=== PATIENT | female | born 2000 | race Caucasian/White ===

== ENCOUNTER 2021-09-20 18:01 | Observation (INO) | payer MEDICAID, SELFPAY ==
--- NOTE | ~2021-09-20 | US_ITS ---
EXAMINATION: US OB <=14 wk fetus w TV DATE: 09/20/2021 20:27 INDICATION: Lower abdominal pain and cramping during first trimester TECHNIQUE: Real-time pelvic transabdominal and transvaginal ultrasound was performed. COMPARISON: None. FINDINGS: The uterus measures 8.0 x 3.5 x 4.8 cm no intrauterine gestational sac is seen. There is a nabothian cyst of the cervix. The endometrium is thickened measuring 2.1 cm. There appears to be a d eformed gestational sac with a pole in the right adnexa. The questionable pole measures a pproximately 1 mm. There is no free fluid in the pelvis. The right ovary measures 5.2 x 3.4 x 3.8 cm. The left ovary measures 3.9 x 1.6 x 1.7 cm. There is normal vascular flow in the ovaries. IMPRESSION: 1. Sonographic findings consistent with ectopic of the right adnexa. These findings were di scussed with Dr. Bhavin Cooney DO in the Emergency Department at 2048 hours on 09/20/2021. Reviewed, dictated and finalized at location F. TY TECH IMPRESSION: 1. Sonographic findings consistent with ectopic of the right adnexa. These findings were discussed with Dr. Bhavin Cooney DO in the Emergency D epartment at 2048 hours on 09/20/2021.
[2021-09-20 18:14] VITALS: BP 124/67; PULSE 77; RESP 16; TEMP 36.9; O2SAT 100
--- NOTE | 2021-09-20 19:15 | ED.GENADULT ---
HPI - General Adult General Chief complaint: CELL LEAD Stated complaint: 5weks preg, abd pain Time Seen by Provider: 09/20/21 19:05 Source: RN notes reviewed History of Present Illness HPI narrative: Patient presents emergency department from home for abdominal pain. Patient states for the past 2 days she has been having intermittent abdominal pain described as cramping in the lower abdomen she states that she is approximately 5 weeks she is states she has similar pain approximately week and a half ago had been seen for ED at [place] at that time and had ultrasound which showed showed no IUP and she had received no RhoGAM at that time. Patient states that she has had no fevers or chills no nausea vomiting diarrhea states that she did have some vaginal spotting this morning but has had none this afternoon Related Data Home Medications Medication Instructions Recorded Confirmed No Home Medications 09/20/21 09/20/21 Allergies Allergy/AdvReac Type Severity Reaction Status Date / Time No Known Allergies Allergy Verified 09/20/21 18:18 Review of Systems Review of Systems: Gen.: Denies fevers or chills ENT: Denies congestion Respiratory: Denies shortness of breath or cough CV: Denies chest pain or palpitations GI: Reports lower abdominal pain nausea, emesis or diarrhea reports and vaginal spotting Musculoskeletal: Denies back pain or muscle pain Neuro: Denies numbness, tingling, weakness or focal weakness Skin: Denies rash Except as documented, all other systems reviewed and negative [facility] Past Medical History Medical History History of kidney stones Surgical History Surgical History (Updated 09/03/19 @ 01:48 by Jack Barahona) History of cholecystectomy History of tonsillectomy Social History Social History Smoking status: Never smoker Exam Narrative: APPEARANCE: No acute distress, nontoxic, resting in bed EYES: EOMI HEENT: Normocephalic, atraumatic, OMM RESPIRATORY: No respiratory distress Clear to auscultation bilaterally with no rhonchi wheezing or rales. CARDIOVASCULAR: Regular rate and rhythm without murmurs rubs or gallops. ABDOMINAL: Soft, nontender, nondistended, no rebound or guarding MUSCULOSKELETAl: Moves all extremities. No clubbing, cyanosis or edema. NEURO: Awake and alert. Following commands, speech normal, no focal deficits SKIN:: Warm, dry. No rashes lesions or abrasions PSYCHIATRIC: Normal affect/mood, Course Course Emergency Course: Discussed with Dr. Kirkland presentation work-up discussed ultrasound results. Request patient admitted to his service n.p.o. after midnight Discussed with patient results of work-up discussed ectopic and need for admission all questions answered patient in agreement at this time Vital Signs Vital signs: Vital Signs Temperature 98.4 F 09/20/21 18:14 Pulse Rate 77 09/20/21 18:14 Respiratory Rate 16 09/20/21 18:14 Blood Pressure 124/67 09/20/21 18:14 Pulse Oximetry 100 09/20/21 18:14 Temperature 98.4 F 09/20/21 18:14 Pulse Rate 77 09/20/21 18:14 Respiratory Rate 16 09/20/21 18:14 Blood Pressure 124/67 09/20/21 18:14 Pulse Oximetry 100 09/20/21 18:14 Medical Decision Making Vital Signs Vital Signs: Vital Signs Temperature 98.4 F 09/20/21 18:14 Pulse Rate 77 09/20/21 18:14 Respiratory Rate 16 09/20/21 18:14 Blood Pressure 124/67 09/20/21 18:14 Pulse Oximetry 100 09/20/21 18:14 Temperature 98.4 F 09/20/21 18:14 Pulse Rate 77 09/20/21 18:14 Respiratory Rate 16 09/20/21 18:14 Blood Pressure 124/67 09/20/21 18:14 Pulse Oximetry 100 09/20/21 18:14 Lab Data Result diagrams: 09/20/21 19:24 09/20/21 19:24 Labs: Lab Results 09/20/21 09/20/21 09/20/21 Range/Units 19:23 19:24 19:24 WBC 11.5 H (4.5
[2021-09-20 19:32] LABS: Basophils Percent Auto 0.3 % (0.2-1.2); Eosinophils Absolute Auto 0.1 K/mm3 (0-0.3); Eosinophils Percent Auto 1.1 % (0-4.4); Hemoglobin 13.8 g/dL (12.0-15.0); Immature Granulocyte Absolute 0.06 K/mm3 (0.00-0.031); Immature Granulocyte Percent A 0.5 % (0-0.5); Lymphocytes Absolute Auto 2.69 K/mm3 (0.9-3.2); Lymphocytes Percent Auto 23.3 % (18.3-44.2); Mean Corpuscular HGB Conc 33.7 g/dl (32-36); Mean Corpuscular Hemoglobin 31.5 pg (26-34); Mean Corpuscular Volume 93.6 fl (80-100); Mean Platelet Volume 10.1 fl (7.4-10.4); Monocytes Absolute Auto 0.8 K/mm3 (0.1-0.6); Monocytes Percent Auto 7.3 % (2.6-8.5); Neutrophils Absolute Auto 7.8 K/mm3 (1.3-6.7); Neutrophils Percent Auto 67.5 % (45.5-73.1); Platelet Count Result 199 k/mm3 (150-375); Red Blood Count 4.38 M/mm3 (4.2-5.4); Red Cell Distribution Width 12.7 % (11.5-14.5); White Blood Count 11.5 K/mm3 (4.5-10.0)
[2021-09-20 19:43] LABS: Add Urine Microscopic? YES; Amorphous Sediment Urine Few; Appearance Urine Cloudy (Clear); Bilirubin Urine Negative (Negative); Blood Urine Negative (Negative); Budding Yeast Urine Present /hpf; Color Urine Yellow (Yellow); Glucose Urine UA Negative (Negative); Ketones Urine Negative (Negative); Leukocyte Esterase Ur Negative LEU/UL (Negative); Mucus Urine Rare /lpf; Nitrate Urine Negative (Negative); Protein Urine Negative (Negative); Squamous Epithelial Cell Urine Moderate /hpf (Few); Urobilinogen Urine Negative mg/dL (<2.0); WBC Urine 0-3 /hpf
[2021-09-20 19:48] LABS: Alanine Aminotransferase 11 U/L (4-35); Albumin Level 4.3 g/dL (3.5-5.1); Alkaline Phosphatase 56 U/L (38-126); Anion Gap 10 mmol/L (8-16); Aspartate Amino Transferase 19 U/L (14-36); Bilirubin,Total 0.4 mg/dL (0.2-1.3); Blood Urea Nitrogen 10 mg/dL (7-17); Calcium 9.5 mg/dL (8.4-10.2); Carbon Dioxide 24 mmol/L (22-30); Chloride 104 mmol/L (98-107); Estimated CRCL calculation 116 ml/min; Estimated Glomerular Filt Rate > 60; Glucose 81 mg/dL (65-110); Potassium 4.2 mmol/L (3.4-5.0); Sodium 138 mmol/L (137-145)
--- NOTE | 2021-09-20 19:51 | PC.NURSE ---
Patient taken to ultrasound.
[2021-09-20] MEDS: ACETAMINOPHEN 500 MG TABLET 1000 MG PO (20:46)
[2021-09-20 21:18] VITALS: BP 130/67; PULSE 80; RESP 17; TEMP 36.4; O2SAT 100
[2021-09-20 21:38] LABS: EDCOVIDSCREEN Negative (Negative)
[2021-09-20 22:11] VITALS: BP 112/56; PULSE 71; TEMP 37.6
[2021-09-21] VITALS (64 sets, daily range): BP systolic 85–135; BP diastolic 32–72; PULSE 62–115; RESP 16–20; TEMP 36.9–37.3; O2SAT 96–100; BMI 37.8; BMI 40.1
[2021-09-21] MEDS: MORPHINE SULFATE (*CRX) 2 MG/ML INJ IV PUSH (00:39)
[2021-09-21 02:24] LABS: Lipase 88 U/L (23-300)
[2021-09-21 05:43] LABS: Basophils Percent Auto 0.4 % (0.2-1.2); Eosinophils Absolute Auto 0.1 K/mm3 (0-0.3); Eosinophils Percent Auto 1.3 % (0-4.4); Hematocrit 38.4 % (37.0-47.0); Hemoglobin 13.2 g/dL (12.0-15.0); Immature Granulocyte Absolute 0.06 K/mm3 (0.00-0.031); Immature Granulocyte Percent A 0.6 % (0-0.5); Lymphocytes Absolute Auto 3.02 K/mm3 (0.9-3.2); Lymphocytes Percent Auto 29.9 % (18.3-44.2); Mean Corpuscular HGB Conc 34.4 g/dl (32-36); Mean Corpuscular Hemoglobin 31.2 pg (26-34); Mean Corpuscular Volume 90.8 fl (80-100); Mean Platelet Volume 10.2 fl (7.4-10.4); Monocytes Absolute Auto 0.7 K/mm3 (0.1-0.6); Monocytes Percent Auto 7.2 % (2.6-8.5); Neutrophils Absolute Auto 6.1 K/mm3 (1.3-6.7); Neutrophils Percent Auto 60.6 % (45.5-73.1); Platelet Count Result 187 k/mm3 (150-375); Red Blood Count 4.23 M/mm3 (4.2-5.4); Red Cell Distribution Width 12.7 % (11.5-14.5); White Blood Count 10.1 K/mm3 (4.5-10.0)
[2021-09-21 05:55] LABS: Anion Gap 6 mmol/L (8-16); Blood Urea Nitrogen 11 mg/dL (7-17); Carbon Dioxide 23 mmol/L (22-30); Chloride 108 mmol/L (98-107); Estimated CRCL calculation 147 ml/min; Estimated Glomerular Filt Rate > 60; Glucose 110 mg/dL (65-110); Potassium 3.7 mmol/L (3.4-5.0); Sodium 137 mmol/L (137-145)
--- NOTE | 2021-09-21 06:10 | OBADM ---
This patient, Giuliana Jalloh, admitted to the OB room [facility] for observation. Patient/family oriented to hospital policies and general routines including ID bracelet, bed and alarms, visiting hours, pain management, procedures, bathroom and other care routines, personal items, smoking policy, room service/diet, and visiting hours. Patient/Family are encouraged to report perceived risks to care and to ask questions if they do not understand what they are told or what they should do.
[2021-09-21] MEDS: LACTATED RINGERS 1,000 ML 125 ML IV CONT ×2 (06:49)
--- NOTE | 2021-09-21 07:35 | PC.NURSE ---
Dr. Kirkland in and explained the ectopic , treatment options, risk of rupture of fallopian tube/ ovary causing life threatening emergency/ blood loss. Pt has opted for the Methyltrexate injection and agrees to be compliant and follow up with repeat BHCG on Thursday and follow up with Dr. Kirkland. Pt was informed that if she should have any worsening of her abdominal pain she should return to the Emergency Department here- verbalizes understanding. Pt's and significant other's questions answered.
--- NOTE | 2021-09-21 07:39 | PM.IMHP ---
H&P: HPI History of Present Illness Date/Time: 09/21/21 07:39 Chief Complaint: abdominal pain ectopic Narrative: 20 yo who presented to the ER with abdominal pain. Pt states she discovered she was be home test and was being followed by a women's healthcare provider at [facility]. She states her Beta-HCG levels have been being monitored and have failed to rise appropriately. She started having some vaginal bleeding and presented to [place] [facility] and received a pelvic US that did not show a intrauterine . Pt states she then started having abdominal pain so she presented to [place] ER. US in our ER showed a possible GS and pole in the Right adnexa. Per the patient her last Beta-HGC level was 1400 and her level here yesterday was 1300. She states her pain will range from a 3-7 out of 10. She has required one dose of narcotic medication overnight. Review of Systems Cardiovascular: Cardiovascular: Denies chest pain, Denies leg edema, Denies palpitations, Denies dyspnea and Denies dyspnea on exertion Respiratory: Respiratory: Denies cough, Denies dyspnea and Denies dyspnea on exertion Gastrointestinal: Gastrointestinal: Reports abdominal pain, Denies constipation, Denies diarrhea, Denies nausea and Denies vomiting Genitourinary: Genitourinary: Denies hematuria, Denies urinary frequency, Denies dysuria, Denies pelvic pain, Denies urinary incontinence and Denies vaginal discharge Neurologic: Reports system reviewed and no additional complaints, except as documented Psychiatric: Psychiatric: Reports no additional psychiatric complaints Endocrine: Endocrine: Denies palpitations PMFSH Past Medical History Medical History History of kidney stones Surgical History Surgical History (Updated 09/03/19 @ 01:48 by Jack Barahona) History of cholecystectomy History of tonsillectomy Social History Social History Smoking status: Former smoker Spiritual care concerns: No Meds Home Medications and Allergies Home Medications Medication Instructions Recorded Confirmed Type No Home Medications 09/20/21 09/20/21 History Allergies Allergy/AdvReac Type Severity Reaction Status Date / Time No Known Allergies Allergy Verified 09/20/21 18:18 Vital Signs Vital Signs - 24 hr 09/20/21 18:14 09/20/21 21:18 09/20/21 22:11 Temperature 36.9 C 36.4 C 37.6 C Pulse Rate 77 80 71 Respiratory Rate 16 17 Blood Pressure 124/67 130/67 112/56 L Pulse Oximetry 100 100 09/21/21 00:01 09/21/21 00:36 09/21/21 00:41 Temperature Pulse Rate 73 Respiratory Rate Blood Pressure 135/58 L Pulse Oximetry 99 100 09/21/21 00:42 09/21/21 00:46 09/21/21 00:51 Temperature Pulse Rate 96 Respiratory Rate Blood Pressure 128/72 Pulse Oximetry 100 100 09/21/21 00:56 09/21/21 01:00 09/21/21 01:01 Temperature 37.1 C Pulse Rate 69 Respiratory Rate Blood Pressure 100/39 L Pulse Oximetry 99 100 09/21/21 01:06 09/21/21 01:11 09/21/21 01:16 Temperature Pulse Rate Respiratory Rate Blood Pressure Pulse Oximetry 99 98 98 09/21/21 01:21 09/21/21 01:26 09/21/21 01:31 Temperature Pulse Rate Respiratory Rate Blood Pressure Pulse Oximetry 97 100 98 09/21/21 01:36 09/21/21 01:41 09/21/21 01:46 Temperature Pulse Rate Respiratory Rate Blood Pressure Pulse Oximetry 97 99 100 09/21/21 01:51 09/21/21 01:56 09/21/21 02:01 Temperature Pulse Rate Respiratory Rate Blood Pressure Pulse Oximetry 100 100 100 09/21/21 02:06 09/21/21 02:11 09/21/21 02:16 Temperature Pulse Rate Respiratory Rate Blood Pressure Pulse Oximetry 99 99 99 09/21/21 02:21 09/21/21 02:26 09/21/21 02:31 Temperature Pulse Rate Respiratory Rate Blood Pressure Pulse Oximetry 9
[2021-09-21] MEDS: METHOTREXATE SODIUM/PF 50 MG/2 ML VIAL 117 MG IM (09:28)
== END 2021-09-21 10:17 | disposition home or self-care (01) ==
LOC: ANHED 21:13 → ANHOBPP 21:39
PROVIDERS: Admitting Provider Student in an Organized Health Care Education/Training Program; Emergency Provider Emergency Medicine; Visit Provider Student in an Organized Health Care Education/Training Program
DX: O00.101 Right tubal pregnancy without intrauterine pregnancy (principal); Z3A.01 Less than 8 weeks gestation of pregnancy; Z20.822 Contact with and (suspected) exposure to COVID-19
CPT/HCPCS: 36415; 76801; 76817; 80048; 80053; 81001; 83690; 84702; 85025; 85461; 87426; 96361; 96372; 96374; 99285; A9270; C9803; G0378; G0379; J2270; J7120; J9260

== ENCOUNTER 2021-10-06 23:23 | Emergency (ER) | payer MEDICAID, SELFPAY ==
--- NOTE | ~2021-10-06 | US_ITS ---
EXAMINATION: US pelvic complete w TV EXAM DATE: 10/07/2021 02:06 INDICATION: Eval for retained products. TECHNIQUE: Pelvic transabdominal and transvaginal sonogram was performed. There are multiple graysca le and Doppler images available for interpretation. Comparison is made to prior examination from 09/20. FINDINGS: Uterus measures 6.7 x 3.9 x 5.1 cm, and is morphologically normal. Endometrial stripe elio sures 6 mm, within normal limits. There is a nabothian cyst. There is no free pelvic fluid. Right adnexa: The ovary measures 3.3 x 2.3 x 3.1 cm and is morphologically normal. Ovarian vascular f low confirmed. Left adnexa: The ovary measures 2.7 x 2.1 x 1.8 cm and is morphologically normal. Ovarian vascular fl ow confirmed. IMPRESSION: Interval normalization of right adnexal appearance and endometrial thickness. Reviewed, dictated and finalized at location B. TUTOR
[2021-10-06 23:25] VITALS: BP 126/81; PULSE 83; RESP 18; TEMP 36.3; O2SAT 100
--- NOTE | 2021-10-07 00:49 | PC.NURSE ---
Pt reports LMP 08/11/21. reports 3 doses of methotrexate for ectopic last month, last dose being 09/27/21. Has been following with OB here.; . reports increases bleeding and cramping today; reports presence of 1x large clot. Pain mostly to RLQ.
[2021-10-07 01:09] VITALS: BP 105/50; PULSE 59; RESP 17; TEMP 36.6; O2SAT 100
--- NOTE | 2021-10-07 01:21 | PC.NURSE ---
Attempt to draw labs and start IV, unsuccessful. Another RN attempting at this time.
--- NOTE | 2021-10-07 01:42 | PC.NURSE ---
Patient taken to US via w/c at this time.
[2021-10-07 01:50] LABS: Basophils Percent Auto 0.3 % (0.2-1.2); Eosinophils Absolute Auto 0.2 K/mm3 (0-0.3); Eosinophils Percent Auto 1.5 % (0-4.4); Hematocrit 40.6 % (37.0-47.0); Hemoglobin 13.6 g/dL (12.0-15.0); Immature Granulocyte Absolute 0.04 K/mm3 (0.00-0.031); Immature Granulocyte Percent A 0.4 % (0-0.5); Lymphocytes Absolute Auto 2.68 K/mm3 (0.9-3.2); Mean Corpuscular HGB Conc 33.5 g/dl (32-36); Mean Corpuscular Hemoglobin 31.6 pg (26-34); Mean Corpuscular Volume 94.4 fl (80-100); Mean Platelet Volume 9.9 fl (7.4-10.4); Monocytes Absolute Auto 0.9 K/mm3 (0.1-0.6); Monocytes Percent Auto 8.9 % (2.6-8.5); Neutrophils Absolute Auto 6.5 K/mm3 (1.3-6.7); Neutrophils Percent Auto 62.9 % (45.5-73.1); Platelet Count Result 225 k/mm3 (150-375); Red Cell Distribution Width 13.4 % (11.5-14.5); White Blood Count 10.3 K/mm3 (4.5-10.0)
[2021-10-07 02:00] LABS: Alanine Aminotransferase 11 U/L (4-35); Albumin Level 4.3 g/dL (3.5-5.1); Alkaline Phosphatase 71 U/L (38-126); Anion Gap 6 mmol/L (8-16); Aspartate Amino Transferase 22 U/L (14-36); Bilirubin,Total 0.4 mg/dL (0.2-1.3); Blood Urea Nitrogen 11 mg/dL (7-17); Calcium 9.6 mg/dL (8.4-10.2); Carbon Dioxide 25 mmol/L (22-30); Chloride 107 mmol/L (98-107); Estimated CRCL calculation 148 ml/min; Estimated Glomerular Filt Rate > 60; Glucose 110 mg/dL (65-110); Sodium 138 mmol/L (137-145)
[2021-10-07 02:04] LABS: Partial Thromboplastin Time 27.5 SECONDS (22.3-36.8)
[2021-10-07 02:09] LABS: INR 0.9; Prothrombin Time 11.8 Seconds (11.1-14.7)
[2021-10-07 02:17] LABS: Beta HCG Quantitative 299.52 mIU/ML
--- NOTE | 2021-10-07 02:35 | ED.GENADULT ---
HPI - General Adult General Chief complaint: Vaginal Bleeding Stated complaint: vag bleeding Time Seen by Provider: 10/07/21 01:00 Source: patient History of Present Illness HPI narrative: 21-year-old female presented to the emergency department for evaluation of vaginal bleeding. Patient's last menstrual period was August 11. Patient's hCG levels were not increasing. Patient did have follow-up with her [employer] and an ultrasound approximately 3 weeks ago showed no pole and patient was diagnosed with a ectopic . Patient was started on methotrexate. Patient received her third treatment on 19 September. Patient states over the last 3 days she has had increased vaginal bleeding. Patient was concerned tonight because she did have some increase in her abdominal cramping and did pass a large clot. Patient states since that time her bleeding has improved and that her pain has resolved. Related Data Allergies Allergy/AdvReac Type Severity Reaction Status Date / Time No Known Allergies Allergy Verified 10/07/21 01:18 Review of Systems Review of Systems: CONSTITUTIONAL: Denies fever, chills, or sweats. EYES: Denies visual changes, redness, or discharge. ENT: Denies rhinorrhea, congestion, sore throat, or otalgia. CARDIOVASCULAR: Denies chest pain, palpitations, or edema. RESPIRATORY: Denies cough or dyspnea. GASTROINTESTINAL: Lower abdominal cramping and vaginal bleeding. GENITOURINARY: Denies dysuria or hematuria. SKIN: Denies rash or itching. MUSCULOSKELETAL: Denies back pain, joint pain, or myalgia. PMFSH Past Medical History Medical History History of kidney stones Surgical History Surgical History (Updated 09/03/19 @ 01:48 by Jack Barahona) History of cholecystectomy History of tonsillectomy Social History Social History Smoking status: Former smoker Spiritual care concerns: No Exam Narrative: APPEARANCE: Well appearing, no pain, no distress, well-nourished. HEAD: normocephalic, atraumatic. RESPIRATORY: Airway patent, respirations nonlabored. Clear to auscultation bilaterally, no rales, rhonchi, wheezing. CARDIOVASCULAR: Regular rate and rhythm without murmurs rubs or gallops. ABDOMINAL: Soft, nontender, nondistended, normal bowel sounds. Did have some vaginal bleeding. On pelvic exam patient did have some bleeding from the cervix. No hemorrhaging. No refilling of the vaginal vault. Minimal tenderness to palpation. MUSCULOSKELETAL: Moves all extremities. Strength/ROM intact, No edema, No calf tenderness. Course Course Emergency Course: Ultrasound showed no evidence of retained products. Patient's pain was improved compared to at home. Patient is not hemorrhaging. Patient's vital signs are stable. Patient has a stable hemoglobin. Patient's hCG was decreasing. Patient was encouraged to have close follow-up with [employer]. All question concerns were addressed. Patient was comfortable with the plan for discharge home and close follow-up. Vital Signs Vital signs: Vital Signs Temperature 97.4 F L 10/06/21 23:25 Pulse Rate 83 10/06/21 23:25 Respiratory Rate 18 10/06/21 23:25 Blood Pressure 126/81 10/06/21 23:25 Pulse Oximetry 100 10/06/21 23:25 Temperature 97.8 F 10/07/21 01:09 Pulse Rate 57 L 10/07/21 02:51 Respiratory Rate 17 10/07/21 02:51 Blood Pressure 114/69 10/07/21 02:51 Pulse Oximetry 100 10/07/21 02:51 Medical Decision Making Vital Signs Vital Signs: Vital Signs Temperature 97.4 F L 10/06/21 23:25 Pulse Rate 83 10/06/21 23:25 Respiratory Rate 18 10/06/21 23:25 Blood Pressure 126/81 10/06/21 23:25 Pulse Oximetry 100 10/06/21 23:25 Temperature 97.8 F 10/07/21 01:09 Pulse Rate 57 L 10/07/21 02:51 Respiratory Rate 17 10/07/21 02:51 Blood Pressure 114/69 10/07/21 02:51 Pulse Oximetry 100 10/07/21 02:51 [place]
[2021-10-07 02:51] VITALS: BP 114/69; PULSE 57; RESP 17; O2SAT 100
[2021-10-07] MEDS: HYDROcodone/acetaminophen (*CRX) 5-325 MG TABLET 1 TAB PO (02:51)
== END 2021-10-07 02:57 | disposition home or self-care (01) ==
PROVIDERS: Emergency Provider Emergency Medicine
DX: N93.9 Abnormal uterine and vaginal bleeding, unspecified (principal); Z87.891 Personal history of nicotine dependence; Z87.442 Personal history of urinary calculi
CPT/HCPCS: 36415; 76830; 76856; 80053; 84702; 85025; 85610; 85730; 86850; 86900; 86901; 99284; A9270

== ENCOUNTER 2023-03-24 09:29 | Emergency (ER) | payer BC, MEDICAID, SELFPAY ==
--- NOTE | 2023-03-24 09:37 | ED.GENADULT ---
HPI - General Adult General Chief complaint: Back Pain/Injury Stated complaint: lower back pain Source: patient and RN notes reviewed Mode of arrival: ambulatory Limitations: no limitations History of Present Illness HPI narrative: Patient is a 22-year-old female who presents to the [facility] with complaints of low back pain starting yesterday. Patient states that she sat down, put her right foot over her left knee and wean down. Patient states that she felt a warmth that radiated up her spine at that time. She denies numbness and sensation is intact. Denies dysfunctional bladder or bowel. Denies urinary symptoms. Denies recent fever. Related Data Allergies Allergy/AdvReac Type Severity Reaction Status Date / Time No Known Allergies Allergy Verified 03/24/23 09:49 Review of Systems Review of Systems: CONSTITUTIONAL: Denies fever, chills, or sweats. EYES: Denies visual changes, redness, or discharge. ENT: Denies otalgia and sore throat CARDIOVASCULAR: Denies chest pain, palpitations, or edema. RESPIRATORY: Denies cough or dyspnea. GASTROINTESTINAL: Denies abdominal pain, nausea, vomiting, or diarrhea. GENITOURINARY: Denies dysuria or hematuria. SKIN: Denies rash or itching. MUSCULOSKELETAL: Reports low back pain but denies joint pain or myalgia. NEUROLOGIC: Denies headache, numbness, or weakness. Pertinent positives per HPI. [facility] Past Medical History Medical History Anxiety History of kidney stones PCOS (polycystic ovarian syndrome) Surgical History Surgical History History of cholecystectomy History of tonsillectomy Family History Family History Father Diabetes mellitus Mother Hypertension Social History Social History Smoking status: Former smoker Tobacco type: cigarettes Smoking end date: 05/27/17 Alcohol intake: never Substance use: never Substance use type: does not use Living arrangements: other Additional living arrangements comments: Occupation/Education: unemployed Gender identity (if verbalized by the patient): Female Sexual Orientation (if Verbalized by the Patient): Straight or Heterosexual Spiritual care concerns: No Comments At the time of my signature, I reviewed and agree with the nursing past medical, surgical, social, and family history. There is no relevant family history pertinent to the patient complaint. Exam Narrative: GENERAL: This is a well-nourished, well-developed patient, in no apparent distress. HEAD: normocephalic, atraumatic. EYES: Sclera clear/white. Vision is grossly intact. EARS: External ears normal. Hearing grossly intact. NOSE: External nose normal with no obvious nasal discharge, nares without redness, no rhinorrhea. THROAT: Mucous membranes moist, posterior pharynx clear. NECK: Neck supple, non-tender without lymphadenopathy, masses or thyromegaly. CARDIOVASCULAR: Regular rate and rhythm without murmurs, gallops, or rubs. RESPIRATORY: Clear to auscultation. Breath sounds equal bilaterally. No wheezes, rales, or rhonchi. GASTROINTESTINAL: Abdomen soft, non-tender, nondistended. Bowel sounds are active. No hepato-splenomegaly, or palpable masses. No guarding. SKIN: warm, intact with no suspicious lesions or rash, good texture and turgor. NEURO: awake, alert, and oriented to person, place and time. There were no obvious focal neurologic abnormalities. EXTREMITIES: No clubbing, cyanosis, or edema. No joint tenderness, effusion, or edema noted. BACK: Tenderness in the paraspinous muscles in the lumbar area. No tenderness over the spinous processes of the lumbar vertebrae. LEGS: Normal strength including dorsi-flexion and plantar flexion of the feet. Negative bilateral straight leg raising, normal and symmet
[2023-03-24 09:40] VITALS: BP 123/71; PULSE 88; RESP 18; TEMP 36.9; O2SAT 100
== END 2023-03-24 10:00 | disposition home or self-care (01) ==
PROVIDERS: Emergency Provider Nurse Practitioner; PCP Family Medicine
DX: S39.012A Strain of muscle, fascia and tendon of lower back, initial encounter (principal); X50.9XXA Other and unspecified overexertion or strenuous movements or postures, initial encounter; E28.2 Polycystic ovarian syndrome
CPT/HCPCS: 99213; G0463

== ENCOUNTER 2023-06-04 08:44 | Emergency (ER) | payer BC, MEDICAID, SELFPAY ==
--- NOTE | ~2023-06-04 | CT_ITS ---
CT of the Abdomen and Pelvis: Indication: Abdominal pain Technique: 2.5 mm axial scans were obtained through the abdomen and pelvis following intravenous adm inistration of 100 cc of Omnipaque 350. Dose reduction technique was used on this scan by utilizing a utomated exposure control and iterative reconstruction technique. The dose-length product (DLP) was 1 493.85 mGy-cm. COMPARISON: 09/03/2019 Findings: Scans through the lung bases are unremarkable. The liver, spleen, pancreas, adrenals and kidneys are within normal limits. Cholecystectomy clips are present. No evidence of aortic aneurysm. No lymphadenopathy. No bowel obstruction or bowel wall thickening. There is no evidence to suggest acute appendicitis. Images through the pelvis were performed. Urinary bladder unremarkable. No adnexal mass evident. No a scites. Impression: No significant abnormalities seen. Reviewed, dictated and finalized at [facility]. Impression: No significant abnormalities seen.
[2023-06-04 08:48] VITALS: BP 133/83; PULSE 87; RESP 16; TEMP 36.6; O2SAT 97
[2023-06-04 10:56] VITALS: BP 117/73; PULSE 65; RESP 18; TEMP 36.7; O2SAT 99
[2023-06-04 11:33] LABS: Appearance Urine Clear (Clear); Bilirubin Urine 1+ (Negative); Blood Urine Negative (Negative); Color Urine Yellow (Yellow); Glucose Urine UA Negative (Negative); Ketones Urine Negative (Negative); Leukocyte Esterase Ur Trace LEU/UL (Negative); Nitrate Urine Negative (Negative); Protein Urine Negative (Negative); Specific Grav Ur >= 1.030 (1.001-1.035); Urobilinogen Urine 0.2 mg/dL (<2.0); pH Urine 5.5 (5.0-9.0)
[2023-06-04 11:37] LABS: Bacteria Urine 3+ /hpf; Non Pathogenic Casts 0-2; Squamous Epithelial Cell Urine Many /hpf (Few)
[2023-06-04 11:44] LABS: Add Urine Microscopic? YES
--- NOTE | 2023-06-04 12:17 | ED.NAVMDI ---
HPI - Nausea/Vomiting/Diarrhea General Chief complaint: Nausea/Vomiting/Diarrhea Stated complaint: Nauseas Time Seen by Provider: 06/04/23 10:57 History of Present Illness HPI Narrative: 22-year-old female with a history of ectopic , s/p cholecystectomy, PCOS reports for evaluation for abdominal cramping, nausea and vomiting x3 days. Patient states she was recently started on medroxyprogesterone 3 days ago by her infertility doctor, Dr. Hays at [facility], and since then developed her symptoms. She reports abdominal cramping for 3 days and emesis since yesterday. She states she feels dehydrated and reports that her urine looks orange, and is complaining of mild dysuria and decreased urine output. She reports decreased p.o. intake due to decreased appetite. She is also reporting postnasal drainage and congestion. She is reporting and generalized abdominal cramping in her epigastrium, suprapubic region, right lower quadrant and left lower quadrant. She reports diarrhea that is unchanged from her baseline since she had a cholecystectomy 4 years ago. She denies urinary frequency or urgency, hematuria, cough, chest pain or shortness of breath, otalgia, sore throat, vaginal discharge or concern for STDs, vaginal bleeding, back pain. LMP 04/22/2023. She states she was recently tested for STDs by her infertility clinic and they were negative and she does not desire testing today. Related Data Home Medications Medication Instructions Recorded Confirmed medroxyprogesterone 10 mg tablet mg 06/04/23 Allergies Allergy/AdvReac Type Severity Reaction Status Date / Time No Known Allergies Allergy Verified 06/04/23 08:44 Review of Systems Review of Systems: CONSTITUTIONAL: Denies fever, chills EYES: Denies visual changes, redness, or discharge. ENT: See HPI CARDIOVASCULAR: Denies chest pain, palpitations, or edema. RESPIRATORY: Denies cough or dyspnea. GASTROINTESTINAL: See HPI GENITOURINARY: See HPI SKIN: Denies rash or itching. MUSCULOSKELETAL: Denies back pain, joint pain, or myalgia. NEUROLOGIC: Denies headache, numbness, dizziness, or weakness. PSYCHIATRIC: Denies anxiety or depression. [facility] Past Medical History Medical History Anxiety History of kidney stones PCOS (polycystic ovarian syndrome) Surgical History Surgical History History of cholecystectomy History of tonsillectomy Family History Family History Father Diabetes mellitus Mother Hypertension Social History Social History Smoking status: Former smoker Tobacco type: cigarettes Smoking end date: 05/27/17 Alcohol intake: never Substance use: never Substance use type: does not use Living arrangements: other Additional living arrangements comments: Occupation/Education: unemployed Gender identity (if verbalized by the patient): Female Sexual Orientation (if Verbalized by the Patient): Straight or Heterosexual Spiritual care concerns: No Exam Narrative: GENERAL: Well-appearing, in no acute distress. Patient resting comfortably in exam bed. She is pleasant and conversational. HEAD: Normocephalic EYES: PERRLA ENT: Nares clear. Mucous membranes moist. Oropharynx without tonsillar hypertrophy exudate or other lesions. Bilateral TMs are ortgea nonbulging. Normal canals. NECK: Supple. CHEST: No respiratory distress. Clear to auscultation, no adventitious breath sounds. HEART: Regular rate and rhythm. No murmur heard. Normal peripheral pulses. ABDOMEN: Soft, normal active bowel sounds. Tenderness in the epigastrium, suprapubic region, right lower quadrant and left lower quadrant without guarding, rebound or rigidity. No CVA tenderness. EXTREMITIES: Normal range of motion. No edema. SK
[2023-06-04] MEDS: ONDANSETRON INJ 4 MG/2 ML VIAL IV PUSH (12:40)
[2023-06-04] MEDS: KETOROLAC 30 MG/ML VIAL (*BKC) IV PUSH (12:41)
[2023-06-04] MEDS: SODIUM CHLORIDE 0.9% IV 1,000 ML 999 ML IV CONT (12:42)
[2023-06-04 12:53] LABS: Basophils Percent Auto 0.4 % (0.2-1.2); Eosinophils Absolute Auto 0.3 K/mm3 (0-0.3); Eosinophils Percent Auto 3.3 % (0-4.4); Hematocrit 44.6 % (37.0-47.0); Hemoglobin 15.1 g/dL (12.0-15.0); Immature Granulocyte Absolute 0.03 K/mm3 (0.00-0.031); Immature Granulocyte Percent A 0.3 % (0-0.5); Lymphocytes Absolute Auto 2.86 K/mm3 (0.9-3.2); Lymphocytes Percent Auto 29.6 % (18.3-44.2); Mean Corpuscular HGB Conc 33.9 g/dl (32-36); Mean Corpuscular Hemoglobin 31.6 pg (26-34); Mean Corpuscular Volume 93.3 fl (80-100); Mean Platelet Volume 10.6 fl (7.4-10.4); Monocytes Absolute Auto 0.7 K/mm3 (0.1-0.6); Monocytes Percent Auto 6.7 % (2.6-8.5); Neutrophils Absolute Auto 5.8 K/mm3 (1.3-6.7); Neutrophils Percent Auto 59.7 % (45.5-73.1); Platelet Count Result 235 k/mm3 (150-375); Red Blood Count 4.78 M/mm3 (4.2-5.4); Red Cell Distribution Width 12.2 % (11.5-14.5); White Blood Count 9.7 K/mm3 (4.5-10.0)
[2023-06-04 13:01] LABS: Alanine Aminotransferase 14 U/L (6-35); Albumin Level 4.6 g/dL (3.5-5.1); Alkaline Phosphatase 76 U/L (38-126); Anion Gap 9 mmol/L (8-16); Aspartate Amino Transferase 25 U/L (14-36); Bilirubin,Total 0.6 mg/dL (0.2-1.3); Blood Urea Nitrogen 14 mg/dL (7-17); Calcium 9.3 mg/dL (8.4-10.2); Carbon Dioxide 25 mmol/L (22-30); Chloride 105 mmol/L (98-107); Estimated CRCL calculation 144 ml/min; Estimated Glomerular Filt Rate > 60; Glucose 79 mg/dL (65-110); Lipase 87 U/L (23-300); Potassium 4.1 mmol/L (3.4-5.0); Sodium 139 mmol/L (137-145)
[2023-06-04 13:27] LABS: Influenza A QL RT-PCR Negative (Negative); Influenza B QL RT-PCR Negative (Negative); SARS-CoV-2 RNA PCR Positive (Negative)
[2023-06-04 14:15] VITALS: BP 129/79; PULSE 65; RESP 16; TEMP 36.6; O2SAT 99
== END 2023-06-04 14:55 | disposition home or self-care (01) ==
PROVIDERS: Preventive Medicine Aerospace Medicine; Emergency Provider Physician Assistant; PCP Family Medicine
DX: R11.2 Nausea with vomiting, unspecified (principal); R82.998 Other abnormal findings in urine; U07.1 COVID-19; E28.2 Polycystic ovarian syndrome; Z90.49 Acquired absence of other specified parts of digestive tract; Z87.442 Personal history of urinary calculi; Z87.891 Personal history of nicotine dependence
CPT/HCPCS: 36415; 74177; 80053; 81001; 81025; 83690; 85025; 87086; 87636; 96361; 96365; 96375; 99284; J0696; J1885; J2405; J7030; Q9967

== ENCOUNTER 2023-08-19 20:46 | Emergency (ER) | payer BC, MEDICAID, SELFPAY ==
[2023-08-19] VITALS (8 sets, daily range): BP systolic 123–133; BP diastolic 72–76; PULSE 70–84; RESP 14–19; TEMP 36.8; O2SAT 99–100
--- NOTE | 2023-08-19 21:03 | ECG_ITS ---
Measurements Intervals Julian Rate: 89 P: 25 CT: 130 QRS: 46 QRSD: 93 T: 20 QT: 343 QTc: 418 Interpretive Statements SINUS RHYTHM WITHIN NORMAL LIMITS NO PREVIOUS ECG AVAILABLE FOR COMPARISON Electronically Signed On 08-20-2023 17:31:50 [employer] by Angel Luis Aragon M.D.
[2023-08-19 22:19] LABS: Basophils Absolute Auto 0.1 K/mm3 (0.0-0.1); Basophils Percent Auto 0.5 % (0.2-1.2); Eosinophils Absolute Auto 0.2 K/mm3 (0-0.3); Eosinophils Percent Auto 1.4 % (0-4.4); Hematocrit 42.5 % (37.0-47.0); Hemoglobin 14.3 g/dL (12.0-15.0); Immature Granulocyte Absolute 0.05 K/mm3 (0.00-0.031); Immature Granulocyte Percent A 0.4 % (0-0.5); Lymphocytes Absolute Auto 2.44 K/mm3 (0.9-3.2); Lymphocytes Percent Auto 19.9 % (18.3-44.2); Mean Corpuscular HGB Conc 33.6 g/dl (32-36); Mean Platelet Volume 10.1 fl (7.4-10.4); Monocytes Absolute Auto 0.7 K/mm3 (0.1-0.6); Monocytes Percent Auto 5.9 % (2.6-8.5); Neutrophils Absolute Auto 8.8 K/mm3 (1.3-6.7); Neutrophils Percent Auto 71.9 % (45.5-73.1); Platelet Count Result 221 k/mm3 (150-375); Red Blood Count 4.62 M/mm3 (4.2-5.4); Red Cell Distribution Width 12.6 % (11.5-14.5); White Blood Count 12.3 K/mm3 (4.5-10.0)
[2023-08-19 22:28] LABS: Appearance Urine Clear (Clear); Bilirubin Urine Negative (Negative); Blood Urine Negative (Negative); Color Urine Yellow (Yellow); Glucose Urine UA Negative (Negative); Ketones Urine 1+ mg/dL (Negative); Leukocyte Esterase Ur Negative LEU/UL (Negative); Nitrate Urine Negative (Negative); Protein Urine Negative (Negative); Urobilinogen Urine 0.2 mg/dL (<2.0); pH Urine 5.5 (5.0-9.0)
[2023-08-19 22:28] LABS: Alanine Aminotransferase 13 U/L (6-35); Albumin Level 4.5 g/dL (3.5-5.1); Alkaline Phosphatase 68 U/L (38-126); Anion Gap 8 mmol/L (8-16); Aspartate Amino Transferase 21 U/L (14-36); Bilirubin,Total 0.3 mg/dL (0.2-1.3); Blood Urea Nitrogen 13 mg/dL (7-17); Calcium 9.7 mg/dL (8.4-10.2); Carbon Dioxide 23 mmol/L (22-30); Chloride 106 mmol/L (98-107); Estimated CRCL calculation 144 ml/min; Estimated Glomerular Filt Rate > 60; Glucose 108 mg/dL (65-110); Potassium 3.5 mmol/L (3.4-5.0); Sodium 137 mmol/L (137-145)
[2023-08-19 22:53] LABS: Add Urine Microscopic? YES
--- NOTE | 2023-08-19 23:24 | ED.GENADULT ---
HPI - General Adult General Chief complaint: Weakness Stated complaint: shortness of breat, weakness Time Seen by Provider: 08/19/23 23:07 Source: patient Mode of arrival: ambulatory Limitations: no limitations History of Present Illness HPI narrative: This is a 22-year-old female who is approximately 1 month seeing a fertility specialist who presents to the ED via EMS for chief complaint of shortness of breath, high blood pressure and general weakness. Patient reports that she was standing today and started to feel a little dizzy/ lightheaded. She denies any syncopal episode but at the same time felt like she had chest tightness. As I interview her she says her symptoms have resolved. Denies any current pain. Completely asymptomatic. Related Data Home Medications Medication Instructions Recorded Confirmed medroxyprogesterone 10 mg tablet mg 06/04/23 Allergies Allergy/AdvReac Type Severity Reaction Status Date / Time No Known Allergies Allergy Verified 06/04/23 08:44 Review of Systems Review of Systems: All systems as dictated in [facility] PMFSH Past Medical History Medical History Anxiety History of kidney stones PCOS (polycystic ovarian syndrome) Surgical History Surgical History History of cholecystectomy History of tonsillectomy Family History Family History Father Diabetes mellitus Mother Hypertension Social History Social History Smoking status: Former smoker Tobacco type: cigarettes Smoking end date: 05/27/17 Alcohol intake: never Substance use: never Substance use type: does not use Living arrangements: other Additional living arrangements comments: Occupation/Education: unemployed Gender identity (if verbalized by the patient): Female Sexual Orientation (if Verbalized by the Patient): Straight or Heterosexual Spiritual care concerns: No Exam Narrative: GENERAL: Well-appearing, well-nourished, and in no acute distress. HEAD: Normocephalic, atraumatic. EYES: PERRLA and EOMI. ENT: Nares clear, no rhinorrhea or epistaxis. Mucous membranes moist. Oropharynx without tonsillar hypertrophy exudate or other lesions. NECK: Supple. No adenopathy or masses. CHEST: No respiratory distress. Clear to auscultation. No wheezes rales or rhonchi HEART: Regular rate and rhythm. No murmur heard. Normal peripheral pulses. ABDOMEN: Soft, nontender, nondistended, normal active bowel sounds. MSK: Normal range of motion. No edema. SKIN: Warm, dry, no rash. NEURO: Alert and oriented x3. No focal deficits. PSYCH: Normal mood and affect. Course Vital Signs Vital signs: Vital Signs Temperature 98.2 F 08/19/23 20:57 Pulse Rate 84 08/19/23 20:57 Respiratory Rate 15 08/19/23 20:57 Blood Pressure 133/76 08/19/23 20:57 Pulse Oximetry 99 08/19/23 20:57 Oxygen Delivery Room Air 08/19/23 20:57 Temperature 98.2 F 08/19/23 20:57 Pulse Rate 74 08/19/23 23:31 Respiratory Rate 17 08/19/23 23:31 Blood Pressure 124/74 08/19/23 23:31 Pulse Oximetry 99 08/19/23 23:31 Oxygen Delivery Room Air 08/19/23 20:57 Medical Decision Making MDM Narrative Medical decision making narrative: this is a 22-year-old female who this proximally 1 month please see his for tele specialist in presents to the ED with chief complaint of lightheadedness, high blood pressures and chest tightness. This did start shortly after taking her progesterone shot which she has been prescribed. Vitals are normal. No elevated blood pressure. CBC is normal. CMP also normal. UA shows 1+ ketones but otherwise normal. She does appear to be little bit dehydrated. by the time I arrived in the room for initial ex
[2023-08-19 23:35] LABS: Pregnancy On Board Control Positive; Urine Pregnancy Test Positive
== END 2023-08-19 23:39 | disposition home or self-care (01) ==
PROVIDERS: Student in an Organized Health Care Education/Training Program; Emergency Provider Physician Assistant
DX: O26.891 Other specified pregnancy related conditions, first trimester (principal); R55 Syncope and collapse; O99.281 Endocrine, nutritional and metabolic diseases complicating pregnancy, first trimester; E28.2 Polycystic ovarian syndrome; Z87.891 Personal history of nicotine dependence; Z87.442 Personal history of urinary calculi; Z3A.00 Weeks of gestation of pregnancy not specified
CPT/HCPCS: 36415; 80053; 81001; 81025; 85025; 93005; 99284

== ENCOUNTER 2024-02-03 16:35 | Observation (INO) | payer BC, MEDICAID, SELFPAY ==
[2024-02-03 17:01] VITALS: BP 112/63; PULSE 98
[2024-02-03 17:15] VITALS: BP 102/62; PULSE 96
[2024-02-03 17:31] VITALS: BP 102/67; PULSE 99
--- NOTE | 2024-02-03 17:35 | OBADM ---
This patient, Giuliana Suazo, admitted to the OB room OB Post 117 for observation. Patient/family oriented to hospital policies and general routines including ID bracelet, bed and alarms, visiting hours, pain management, procedures, bathroom and other care routines, personal items, smoking policy, room service/diet, and visiting hours. Patient/Family are encouraged to report perceived risks to care and to ask questions if they do not understand what they are told or what they should do.
[2024-02-03 17:38] VITALS: TEMP 36.6
--- NOTE | 2024-02-16 12:25 | PM.OBTRLD ---
OB - Triage/Final Diagnosis Visit Information Comments/Additional reasons for admission: I have assessed the risk for this patient, Giuliana Suazo, and determined that she would benefit from observation care. Final Diagnosis (1) Abdominal pain affecting : Code(s): O26.899 - Other specified related conditions, unspecified trimester; R10.9 - Unspecified abdominal pain Status: Acute
== END 2024-02-03 17:47 | disposition home or self-care (01) ==
PROVIDERS: Admitting Provider Obstetrics & Gynecology; Visit Provider Obstetrics & Gynecology
DX: O26.893 Other specified pregnancy related conditions, third trimester (principal); R10.9 Unspecified abdominal pain; Z3A.29 29 weeks gestation of pregnancy
CPT/HCPCS: G0378; G0379

== ENCOUNTER 2024-03-20 18:22 | Observation (INO) | payer BC, SELFPAY ==
[2024-03-20 19:01] VITALS: BP 128/70; PULSE 83
[2024-03-20 19:16] VITALS: BP 134/66; PULSE 80
[2024-03-20 19:31] VITALS: BP 127/71; PULSE 83
[2024-03-20 19:46] VITALS: BP 132/75; PULSE 83
[2024-03-20 19:53] LABS: Appearance Urine Cloudy (Clear); Bacteria Urine 4+ /hpf; Bilirubin Urine Negative (Negative); Blood Urine Negative (Negative); Calcium Oxalate Crystals Urine Present /hpf; Color Urine Yellow (Yellow); Glucose Urine UA Negative (Negative); Ketones Urine Negative (Negative); Leukocyte Esterase Ur 1+ LEU/UL (Negative); Need Manual Microscopic Reviewed; Nitrate Urine Negative (Negative); Protein Urine Negative (Negative); RBC Urine 0-2 /hpf (0-2); Specific Grav Ur 1.021 (1.001-1.035); Squamous Epithelial Cell Urine Few /hpf (Few); Urobilinogen Urine 0.2 mg/dL (<2.0); WBC Urine 21-50 /hpf (0-3); pH Urine 5.5 (5.0-9.0)
[2024-03-20 19:54] LABS: Add Urine Microscopic? YES
[2024-03-20 20:03] VITALS: BMI 41.2
--- NOTE | 2024-03-20 20:03 | OBADM ---
This patient, Giuliana Suazo, admitted to the OB room Labor/Delivery/Recovery 106 for observation. Patient/family oriented to hospital policies and general routines including ID bracelet, bed and alarms, visiting hours, pain management, procedures, bathroom and other care routines, personal items, smoking policy, room service/diet, and visiting hours. Patient/Family are encouraged to report perceived risks to care and to ask questions if they do not understand what they are told or what they should do.
[2024-03-20] MEDS: CEPHALEXIN 250 MG CAPSULE 500 MG (20:20)
--- NOTE | 2024-03-28 08:45 | PM.OBTRLD ---
OB - Triage/Final Diagnosis Visit Information Reason for evaluation: threatened labor Comments/Additional reasons for admission: I have assessed the risk for this patient, Giuliana Suazo, and determined that she would benefit from observation care. Evaluation Laboratory results: Laboratory Tests 03/20/24 19:22 Urine Color Yellow Urine Appearance Cloudy H Urine pH 5.5 Ur Specific [place] 1.021 Urine Protein Negative Urine Glucose (UA) Negative Urine Ketones Negative Ur Blood (Man) Negative Urine Nitrate Negative Urine Bilirubin Negative Urine Urobilinogen 0.2 Add Ur Microanalysis Reviewed Leukocyte Esterase Rfl 1+ H Urine RBC 0-2 Urine WBC 21-50 H Ur Squamous Epith Cells Few Calcium Oxalate Crystal Present Urine Bacteria 4+ H Urine Casts 3-5
== END 2024-03-20 20:20 | disposition home or self-care (01) ==
PROVIDERS: Admitting Provider Obstetrics & Gynecology Gynecology; Visit Provider Obstetrics & Gynecology Gynecology
DX: O47.03 False labor before 37 completed weeks of gestation, third trimester (principal); Z3A.36 36 weeks gestation of pregnancy
CPT/HCPCS: 81001; 87086; A9270; G0378; G0379

== ENCOUNTER 2024-03-28 04:53 | Observation (INO) | payer BC, SELFPAY ==
[2024-03-28 05:16] VITALS: BP 112/77; PULSE 94
[2024-03-28 05:31] VITALS: BP 116/62; PULSE 88
[2024-03-28 05:46] VITALS: BP 107/69; PULSE 85
[2024-03-28 06:01] VITALS: PULSE 93
[2024-03-28 06:25] VITALS: BMI 41.2
[2024-03-28 06:25] LABS: Add Urine Microscopic? YES; Appearance Urine Cloudy (Clear); Bacteria Urine 3+ /hpf; Bilirubin Urine 1+ (Negative); Blood Urine Negative (Negative); Calcium Oxalate Crystals Urine Present /hpf; Color Urine Dark Yellow (Yellow); Glucose Urine UA Negative (Negative); Ketones Urine 1+ mg/dL (Negative); Leukocyte Esterase Ur Trace LEU/UL (Negative); Need Manual Microscopic Reviewed; Nitrate Urine Negative (Negative); Protein Urine 1+ mg/dL (Negative); Specific Grav Ur 1.026 (1.001-1.035); Squamous Epithelial Cell Urine Many /hpf (Few); pH Urine 5.5 (5.0-9.0)
[2024-03-28] MEDS: FAMOTIDINE 20 MG TABLET PO (06:48)
[2024-03-28] MEDS: ONDANSETRON HCL ODT 4 MG TABLET PO (06:48)
--- NOTE | 2024-03-28 06:52 | PC.NURSE ---
Notified Dr. Gonzalez at 0637 of patient's arrival with complaints of nausea and vomiting with eating for the last 2 days. Notified MD of UA results. Received verbal orders for oral hydration, PO Pepcid, and PO Zofran. Verbal orders to discharge patient to home if nausea improves. Patient agrees with plan of care at this time and has no questions.
--- NOTE | 2024-03-29 12:34 | PM.OBTRLD ---
OB - Triage/Final Diagnosis Visit Information Comments/Additional reasons for admission: I have assessed the risk for this patient, Giuliana Suazo, and determined that she would benefit from observation care. Evaluation Laboratory results: Laboratory Tests 03/28/24 05:31 Urine Color Dark yellow Urine Appearance Cloudy H Urine pH 5.5 Ur Specific [place] 1.026 Urine Protein 1+ H Urine Glucose (UA) Negative Urine Ketones 1+ H Ur Blood (Man) Negative Urine Nitrate Negative Urine Bilirubin 1+ H Urine Urobilinogen 1.0 Add Ur Microanalysis Reviewed Leukocyte Esterase Rfl Trace H Urine RBC 3-5 H Urine WBC 11-20 H Ur Squamous Epith Cells Many H Calcium Oxalate Crystal Present Urine Bacteria 3+ H Urine Casts 3-5 Final Diagnosis (1) Nausea and vomiting during : Code(s): O21.9 - Vomiting of , unspecified Status: Acute
== END 2024-03-28 07:28 | disposition home or self-care (01) ==
PROVIDERS: Admitting Provider Obstetrics & Gynecology; Visit Provider Obstetrics & Gynecology
DX: O21.9 Vomiting of pregnancy, unspecified (principal); Z3A.37 37 weeks gestation of pregnancy
CPT/HCPCS: 81001; 87086; A9270; G0378; G0379

== ENCOUNTER 2024-04-15 16:40 | Inpatient (IN) | payer BC, SELFPAY ==
[2024-04-15] VITALS (75 sets, daily range): BP systolic 114–143; BP diastolic 63–88; PULSE 75–110; RESP 16; TEMP 36.8–37; O2SAT 95–100; BMI 42.5
--- NOTE | 2024-04-15 17:11 | LDADM ---
This patient, Giuliana Suazo, was admitted to Labor/Delivery/Recovery 105 on 04/15/24 at 16:40. Plans for labor, pain management and were discussed with patient. Patient/family oriented to hospital policies and general routines including ID bracelet, bed and alarms, visiting hours, pain management, procedures, bathroom and other care routines, personal items, smoking policy, room service/diet and guest tray routines, security routines, and visiting hours. Patient/Family are encouraged to report perceived risks to care and to ask questions if they do not understand what they are told or what they should do. See OBIX for further documentation.
[2024-04-15 17:26] LABS: Basophils Absolute Auto 0.1 K/mm3 (0.0-0.1); Basophils Percent Auto 0.5 % (0.2-1.2); Eosinophils Absolute Auto 0.1 K/mm3 (0-0.3); Eosinophils Percent Auto 0.5 % (0-4.4); Hematocrit 37.1 % (37.0-47.0); Hemoglobin 12.6 g/dL (12.0-15.0); Immature Granulocyte Percent A 1.8 % (0-0.5); Lymphocytes Absolute Auto 2.13 K/mm3 (0.9-3.2); Lymphocytes Percent Auto 19.5 % (18.3-44.2); Mean Corpuscular Hemoglobin 30.4 pg (26-34); Mean Corpuscular Volume 89.6 fl (80-100); Mean Platelet Volume 10.8 fl (7.4-10.4); Monocytes Absolute Auto 0.8 K/mm3 (0.1-0.6); Monocytes Percent Auto 7.6 % (2.6-8.5); Neutrophils Absolute Auto 7.7 K/mm3 (1.3-6.7); Neutrophils Percent Auto 70.1 % (45.5-73.1); Platelet Count Result 176 k/mm3 (150-375); Red Blood Count 4.14 M/mm3 (4.2-5.4); Red Cell Distribution Width 14.2 % (11.5-14.5); White Blood Count 10.9 K/mm3 (4.5-10.0)
[2024-04-15] MEDS: OXYTOCIN 30 UNITS/NS 500 ML 30 UNITS/500 ML BAG IV CONT (17:50)
[2024-04-15] MEDS: LACTATED RINGERS 1,000 ML 125 ML IV CONT (17:50)
[2024-04-15 18:01] LABS: Rapid Plasma Reagin Non-Reactive (NonReactive)
[2024-04-15 18:24] LABS: HIV 1/2 Ab P24 Ag Result Negative (Negative)
[2024-04-15] MEDS: CALCIUM CARBONATE (TUMS) 500 MG (200 MG ELEMENTAL) PO (21:32)
[2024-04-16] VITALS (402 sets, daily range): BP systolic 72–173; BP diastolic 24–121; PULSE 65–201; TEMP 36.6–37; O2SAT 79–100
--- NOTE | 2024-04-16 02:38 | PM.IMHP ---
H&P: HPI History of Present Illness Date/Time: 04/16/24 02:38 Chief Complaint: Here for induction of labor Narrative: 23 y/o at 40 1/7 weeks gestation here for induction of labor. GBS neg. Has been receiving oxytocin IV. Had SROM with clear fluid. Now feeling more contractions. Review of Systems Review of Systems: All systems reviewed & are unremarkable except as noted in HPI and below PMFSH Past Medical History Medical History Anxiety History of kidney stones IUP (intrauterine ), incidental Morbid obesity with BMI of 40.0-44.9, adult PCOS (polycystic ovarian syndrome) Surgical History Surgical History History of cholecystectomy History of tonsillectomy Family History Family History Father Diabetes mellitus Mother Hypertension Social History Social History Smoking status: Former smoker Tobacco type: cigarettes Smoking end date: 05/27/17 Alcohol intake: never Substance use: never Substance use type: does not use Do You Feel Safe in your Home?: Yes Lack of Transportation: No Lack of Food: Never True Current Housing: I Have Housing Concerned About Future Housing: No Difficulty Paying Gas/Electric Bills: No Difficulty Paying for Meds: No Currently Unemployed: No Education: High School Diploma/GED Difficulty w/ Childcare or Family Care: No Living arrangements: other Additional living arrangements comments: Occupation/Education: unemployed Gender identity (if verbalized by the patient): Female Sexual Orientation (if Verbalized by the Patient): Straight or Heterosexual Spiritual care concerns: No Meds Home Medications and Allergies Home Medications Medication Instructions Recorded Confirmed Type prenat.vits,catherine,gmn-misa-akyua 1 tablet PO DAILY 03/17/24 04/15/24 History Allergies Allergy/AdvReac Type Severity Reaction Status Date / Time No Known Allergies Allergy Verified 03/28/24 07:04 Vital Signs Vital Signs - 24 hr 04/15/24 17:10 04/15/24 17:21 04/15/24 17:50 Temperature 36.8 C Pulse Rate 88 Respiratory Rate 16 Blood Pressure 122/82 Pulse Oximetry Oxygen Delivery Room Air 04/15/24 18:20 04/15/24 18:31 04/15/24 18:46 Temperature 36.9 C Pulse Rate 84 87 Respiratory Rate Blood Pressure 124/66 114/67 Pulse Oximetry Oxygen Delivery 04/15/24 19:01 04/15/24 19:16 04/15/24 19:38 Temperature Pulse Rate 87 81 Respiratory Rate Blood Pressure 125/88 135/74 Pulse Oximetry 96 Oxygen Delivery 04/15/24 19:43 04/15/24 19:46 04/15/24 19:48 Temperature Pulse Rate 87 Respiratory Rate Blood Pressure 128/74 Pulse Oximetry 96 97 Oxygen Delivery 04/15/24 19:53 04/15/24 19:58 04/15/24 20:01 Temperature Pulse Rate 89 Respiratory Rate Blood Pressure 133/70 Pulse Oximetry 97 97 Oxygen Delivery 04/15/24 20:03 04/15/24 20:08 04/15/24 20:13 Temperature Pulse Rate Respiratory Rate Blood Pressure Pulse Oximetry 98 98 97 Oxygen Delivery 04/15/24 20:16 04/15/24 20:18 04/15/24 20:23 Temperature Pulse Rate 88 Respiratory Rate Blood Pressure 143/71 H Pulse Oximetry 97 96 Oxygen Delivery 04/15/24 20:28 04/15/24 20:31 04/15/24 20:33 Temperature Pulse Rate 88 Respiratory Rate Blood Pressure 129/79 Pulse Oximetry 96 96 Oxygen Delivery 04/15/24 20:38 04/15/24 20:43 04/15/24 20:46 Temperature Pulse Rate 90 Respiratory Rate Blood Pressure 116/81 Pulse Oximetry 96 96 Oxygen Delivery 04/15/24 20:48 04/15/24 20:53 04/15/24 20:58 Temperature Pulse Rate Respiratory Rate Blood Pressure Pulse Oximetry 95 99 100 Oxygen Delivery
[2024-04-16] MEDS: LACTATED RINGERS 1,000 ML 125 ML IV CONT ×2 (03:46→16:21)
[2024-04-16] MEDS: PHENYLEPHRINE 1,000 MCG/10 ML SYRINGE 100 MCG IV PUSH (04:49)
[2024-04-16] MEDS: ONDANSETRON INJ 4 MG/2 ML VIAL IV PUSH ×2 (08:13→23:16)
--- NOTE | 2024-04-16 10:52 | PM.OBPNLAB ---
Pain Control Date/time seen: 04/16/24 10:52 Comfortable with epidural. AVSS NST reactive TOCO: contractions every 2-4 min ABD soft, nontender, gravid Cervix /-2. AROM of forebag with clear fluid. IUPC placed. Continue labor.
[2024-04-16] MEDS: AMPICILLIN 2 GM/NS 100 ML 2 GM/100 ML BAG IVPB (16:21)
[2024-04-16] MEDS: AMPICILLIN 1 GM/NS 50 ML 1 GM/50 ML BAG IVPB (19:48)
[2024-04-16] MEDS: ACETAMINOPHEN 500 MG TABLET 1000 MG PO (23:15)
[2024-04-16] MEDS: FAMOTIDINE 20 MG/2 ML VIAL IV PUSH (23:17)
--- NOTE | 2024-04-16 23:17 | P.PNOB_ITS ---
Pain Control Date/time seen: 04/16/24 23:17 Still comfortable with epidural. AVSS NST reactive TOCO: contractions every 2-3 min Cervix 8/100/0 A: Arrest of dilation in labor. P: Offered primary . She understands risks of surgery to include risks of anesthesia, risks of pain, infection, bleeding, blood products, thromboemboli c phenomena and damage to adjacent structures such as bowel, bladder, ureters, blood vessels and nerves. She understands all these risks and elects to proceed with surgery.
[2024-04-16] MEDS: ceFAZolin 3 GM/D5W 100 ML 100 ML IVPB (23:20)
[2024-04-16] MEDS: AZITHROMYCIN 500 MG/NS 250 ML 500 MG/250 ML BAG 250 MG IVPB (23:20)
[2024-04-17] VITALS (39 sets, daily range): BP systolic 89–131; BP diastolic 42–69; PULSE 97–146; RESP 16–100; TEMP 36.7–37.8; O2SAT 86–99
--- NOTE | 2024-04-17 00:25 | W.PM.OBCSD ---
OB - Delivery Note Procedure Delivery date: 04/17/24 Pre-op diagnosis: Arrest of Dilation Post-op Diagnosis: Same Induction method: Per Pitocin Protocol Delivery monitor: External FHT, External Uterine and Internal Uterine Procedure Performed: Primary Surgeon: Riki Gonzalez MD Anesthesia type: Epidural Description of Procedure/Findings: The patient was taken to the operating room where she was prepared and draped in the usual sterile fashion in dorsal supine position with a leftward tilt. She received cefazolin preoperatively. Epidural anesthesia was found to be adequate. A Pfannenstiel skin incision was made and carried through to the underlying layer of the fascia. The fascia was incised in the midline and the incision was extended laterally. The fascia was dissected free of the underlying rectus muscles. The rectus muscles were in the midline. The peritoneum was identified, tented up and entered sharply. The peritoneal incision was extended superiorly and inferiorly with good visualization of the bladder. The bladder blade was placed. The vesicouterine peritoneum was identified, tented up and entered sharply. The incision was extended laterally and the bladder flap was developed. The bladder blade was replaced. The uterus was then incised sharply in a transverse fashion along the lower uterine segment. The incision was extended laterally. The 's head was delivered atraumatically to the sterile field, followed by the body. The nose and mouth were bulb suctioned. After a delay, the cord was clamped and cut. The infant was handed off the field. Cord blood was collected. The placenta was removed manually and was passed off the field. The uterus was exteriorized and cleared of all clots and debris. The uterine incision was reapproximated using 0 Monocryl in a running, locked fashion. A second, imbricating layer of the same suture was run. Excellent hemostasis resulted as did excellent reapproximation of the normal anatomy. The uterus was returned the abdomen. The pelvis was irrigated copiously with warmed normal saline. Hemaderm was applied to the bladder flap. Rigorous hemostasis was assured. The fascial layer was reapproximated using 0 Vicryl in a running fashion. The skin was closed with a running, subcuticular stitch of 4 0 Vicryl. Dermaflex was applied externally. Sponge, lap, needle and instrument counts were correct. The patient was taken to the recovery room in stable condition. The infant went to the nursery in stable condition. I was present and scrubbed the entire procedure. Specimen: Yes (Cord blood) Estimated Blood Loss: 800 Drains: Yes (Mario) Packing: No Pathology: Yes (Cord blood) Complications: None Condition: Stable Disposition: PACU Baby Date of : 04/17/24 Time of : 23:46 Gestational Age by Date: 40 gender: Male Weight (pounds): 9 Weight (ounces): 2 presentation: vertex Placenta delivery description: Manual Removal and Normal Configuration Cord Vessel Description: 3 Vessels and Delayed Cord Clamping score one minute: 8 score five minutes: 9
--- NOTE | 2024-04-17 00:32 | PM.OBDSVD ---
DS: Admitting Diagnosis Discharge Date 04/19/24 Admitting Diagnosis IUP at 40 weeks DS: Discharge Diagnosis Discharge Diagnosis (1) delivery delivered: Code(s): O82 - Encounter for delivery without indication Status: Acute OB - DS: Summary OB Procedures : None OB Procedures Intrapartum: Spontaneous Vag Delivery OB Procedures: : None Peripartum Data Procedures: Procedures Operation Date: 04/16/24 22:45 <No data on this case meets the specified criteria> Time Spent with Patient Time attestation: Total time spent providing and/or coordinating discharge services: Discharge Plan Discharge Attending physician on discharge: Riki Gonzalez Discharging Clinician: Riki Gonzalez Patient Disposition: Home, Self-Care Activity: may shower, may drive after 2 weeks and pelvic rest Diet: regular Wound Care Instructions: incision open to air Discharge Instructions: Education: Mom and Baby Guide Given to: Mother Follow-Up: Call your delivering provider's office for an appointment to be seen in: 6 Weeks Mom and baby should come to the [facility] for the follow-up appointment. Appointment Date/Time: April 20, 2024 at 9:00 am What to expect at your follow-up visit: Physical Assessment Call [phone] if you are unable to keep your appointment time. BREAST CARE: * Wear a snug supportive bra. * For engorgement discomfort: Breast Feeding: * Apply warm moist washcloths * Express milk as needed to relieve engorgement * Wear loose clothing Bottle Feeding: * May apply ice packs * For sore nipples: * Identify correct latch-on * Apply warm moist washcloths before and after nursing * Air dry nipples after nursing * May apply Lansinoh cream to nipples ABDOMINAL INCISION: (if applicable) * Allow incision to air dry * Do NOT use lotions for powders on your incision * When showering, allow soap and water to run over the incision, but do not wash incision EPISIOTOMY/PERINEAL CARE: * Until bleeding stops, use your christophe bottle after urinating * Change your pad frequently throughout the day * You may take sitz baths several times a day (fill your bathtub with warm water and soak for 20 minutes.) Do NOT bathe in the water * No tub baths until seen by your physician - You may shower ACTIVITY: * Rest as much as possible. * Do not exercise or lift anything heavier than your baby (such as laundry or other children.) * Avoid stairs or driving as much as possible. * Do not put anything into the vagina. No douching, tampons, or sexual activity until seen by physician. NOTIFY PHYSICIAN IF YOU HAVE ANY QUESTIONS OR IF ANY OF THE FOLLOWING SYMPTOMS OCCUR: * If your episiotomy or incision becomes red, swollen, or more painful than what you have experienced in the hospital. * If your vaginal bleeding becomes foul smelling. * If your vaginal bleeding becomes more heavy than a period or if your bleeding changes from pink to bright red. However, you may pass an occasional walnut-sized clot once or twice for the first week . * If you experience a sharp, shooting pain in you calves. * If you discover a hard, reddened area on your breast or if you experience flu-like symptoms. DIET: * Eat regular, well-balanced meals. * Drink plenty of fluids daily. If , drink to thirst.Call or return if temperature above 100.4? F, increased abdominal pain, increased vaginal bleeding or any new problems. Stand Alone Forms: General Discharge Information Follow-up/Referrals: Riki Gonzalez MD [Physician] - 4 Weeks Discharge Medications: New ibuprofen 600 mg tablet 600 mg PO Q6H PRN (Reason: cramps) Qty: 30 0RF hydrocodone-acetaminophen 5-325 mg tablet 1 - 2 tablet PO Q6H PRN (Reason: pain) Qty: 30 0RF ferrous sulfate 325 mg (6
[2024-04-17] MEDS: IBUPROFEN 600 MG TABLET PO (03:15)
[2024-04-17] MEDS: DEXTROSE 5%/0.45% SOD CHL 1,000 ML 125 ML IV CONT (04:30)
[2024-04-17] MEDS: ACETAMINOPHEN 325 MG TABLET 650 MG PO ×3 (04:50→17:54)
[2024-04-17] MEDS: LIDOCAINE HCL 2% PF INJ 5 ML VIAL (06:32)
[2024-04-17] MEDS: MULTIVIT/MIN/PREN/FOL AC/IRON TABLET 1 TAB PO (08:12)
[2024-04-17] MEDS: DOCUSATE SODIUM 100 MG CAPSULE PO ×2 (08:12→17:55)
[2024-04-17] MEDS: SIMETHICONE 80 MG TAB.CHEW PO ×3 (08:12→17:55)
[2024-04-17 08:51] LABS: Basophils Percent Auto 0.3 % (0.2-1.2); Eosinophils Percent Auto 0.2 % (0-4.4); Hematocrit 28.5 % (37.0-47.0); Hemoglobin 9.4 g/dL (12.0-15.0); Immature Granulocyte Absolute 0.07 K/mm3 (0.00-0.031); Immature Granulocyte Percent A 0.5 % (0-0.5); Lymphocytes Percent Auto 8.5 % (18.3-44.2); Mean Corpuscular Hemoglobin 30.8 pg (26-34); Mean Corpuscular Volume 93.4 fl (80-100); Monocytes Absolute Auto 0.6 K/mm3 (0.1-0.6); Monocytes Percent Auto 4.9 % (2.6-8.5); Neutrophils Percent Auto 85.6 % (45.5-73.1); Platelet Count Result 123 k/mm3 (150-375); Red Blood Count 3.05 M/mm3 (4.2-5.4); Red Cell Distribution Width 14.5 % (11.5-14.5); White Blood Count 12.9 K/mm3 (4.5-10.0)
--- NOTE | 2024-04-17 08:52 | WPDANLDPN2 ---
Anes-Prog Note L&D Date/Time: 04/17/24 08:52 Comfortable throughout: labor, delivery and section Neuraxial method: epidural Epidural/Spinal procedure site: clean & non-tender Neuro status: Neuro function grossly intact. Cardiovascular status: normal Respiratory status: normal Airway patency: baseline Mental status: baseline Vital Signs: Last Vital Signs Temp 36.8 C 04/17/24 05:54 Pulse 104 H 04/17/24 03:31 Resp 18 04/17/24 03:31 BP 106/57 L 04/17/24 03:31 Pulse Ox 99 04/17/24 03:31 O2 Del Method Room Air 04/17/24 02:25 Pain score (VAS): 2 I/O: Intake & Output 04/16/24 04/17/24 04/17/24 23:59 07:59 15:59 Intake Total 1000 325 Output Total 1340 Balance 1000 -1015 Patient feedback: Patient satisfied with anesthetic care.
--- NOTE | 2024-04-17 08:52 | WPDANLDNPN2 ---
Anes-Prog Note L&D-Neuraxial Date/Time: 04/17/24 08:52 Neuraxial medications: epidural PF morphine Opiod-related complaints: none Patient feedback: Patient satisfied with post-operative pain management.
[2024-04-17] MEDS: POLYSACCHARIDE IRON COMPLEX 150 MG CAPSULE PO ×2 (09:00→17:56)
[2024-04-17] MEDS: KETOROLAC 15 MG/ML VIAL (*BKC) IV PUSH ×3 (11:55→23:45)
--- NOTE | 2024-04-17 12:02 | PM.OBPNVD ---
OB - PN: Subj Subjective Date/time seen: 04/17/24 12:02 Narrative: Pain OK. Tolerating diet. Would like circumcision for son. OB - PN: Obj Data Labs 04/17/24 08:16 Labs: Laboratory Results - last 24 hr 04/17/24 08:16 WBC 12.9 H RBC 3.05 L Hgb 9.4 L D Hct 28.5 L MCV 93.4 MCH 30.8 MCHC 33.0 RDW 14.5 Plt Count 123 L MPV 11.0 H Immature Gran % (Auto) 0.5 Neut % (Auto) 85.6 H Lymph % (Auto) 8.5 L [place] % (Auto) 4.9 Eos % (Auto) 0.2 Baso % (Auto) 0.3 Lymph # (Auto) 1.10 [place] # (Auto) 0.6 Eos # (Auto) 0.0 Baso # (Auto) 0.0 Abs Immat Gran (auto) 0.07 H Absolute Neuts (auto) 11.0 H Absolute Nucleated RBC 0.000 Nucleated RBC % 0.0 OB - PN A/P Plan day: 0 Comments: A: POD#0, doing well. P: Routine care. Reviewed circ. Exam Narrative: AVSS I/O OK ABD soft, nontender, fundus firm. Incision c/d/i. EXT nontender
--- NOTE | 2024-04-17 20:51 | PC.NURSE ---
2030- breast pump instructions, usage and care explained to mother.
[2024-04-18] MEDS: ACETAMINOPHEN 325 MG TABLET 650 MG PO ×4 (00:23→17:46)
--- NOTE | 2024-04-18 01:00 | PC.NURSE ---
Introductions were made, then consulted with patient to assess needs related to . Infant was given similac bottles throughout the night due to infants lack of interest . Pump was initiated by Night RN and she has pumped a few times . Mother states that she would still like to attempt to breastfeed infant. Encouraged understanding of the benefits of skin to skin, stimulating with massage touch, changing positions to encourage wakefulness, how to watch for early feeding cues, responsive feeding, feeding on demand (aiming for 8-12 times in 24 hours, about every 2-3 hours), milk production, building/maintaining a milk supply, duration of feeding, signs of adequate intake/output and how to record on the feeding sheet. Mother instructed to call this RN with next feeding. Reported to the Primary RN.
[2024-04-18] MEDS: IBUPROFEN 600 MG TABLET PO ×2 (06:03→12:03)
[2024-04-18] MEDS: MULTIVIT/MIN/PREN/FOL AC/IRON TABLET 1 TAB PO (07:28)
[2024-04-18] MEDS: DOCUSATE SODIUM 100 MG CAPSULE PO ×2 (07:28→17:45)
[2024-04-18] MEDS: SIMETHICONE 80 MG TAB.CHEW PO ×3 (07:28→17:44)
[2024-04-18] MEDS: POLYSACCHARIDE IRON COMPLEX 150 MG CAPSULE PO ×2 (07:28→17:45)
[2024-04-18 07:43] VITALS: BP 113/66; PULSE 89; RESP 18; TEMP 37; O2SAT 98
--- NOTE | 2024-04-18 08:49 | PM.OBPNVD ---
OB - PN: Subj Subjective Date/time seen: 04/18/24 08:49 Narrative: Pain OK. Tolerating diet. OB - PN: Obj Data Labs 04/17/24 08:16 Labs: Laboratory Results - last 24 hr 04/17/24 08:16 WBC 12.9 H RBC 3.05 L Hgb 9.4 L D Hct 28.5 L MCV 93.4 MCH 30.8 MCHC 33.0 RDW 14.5 Plt Count 123 L MPV 11.0 H Immature Gran % (Auto) 0.5 Neut % (Auto) 85.6 H Lymph % (Auto) 8.5 L [place] % (Auto) 4.9 Eos % (Auto) 0.2 Baso % (Auto) 0.3 Lymph # (Auto) 1.10 [place] # (Auto) 0.6 Eos # (Auto) 0.0 Baso # (Auto) 0.0 Abs Immat Gran (auto) 0.07 H Absolute Neuts (auto) 11.0 H Absolute Nucleated RBC 0.000 Nucleated RBC % 0.0 OB - PN A/P Plan Comments: A: POD#1, doing well. P: Routine care. She is considering home tomorrow. Exam Narrative: AVSS I/O OK ABD soft, nontender, fundus firm. Incision c/d/i. EXT nontender
--- NOTE | 2024-04-18 15:22 | PC.NURSE ---
Mother did not call this RN to assist with feeding - she states that she was able to latch successfully and was on breast for 25-30 minutes.
[2024-04-18 18:41] VITALS: BP 110/64; PULSE 113; RESP 16; TEMP 36.9; O2SAT 100
[2024-04-18] MEDS: HYDROCORTISONE 1% 30 GM CREAM 1 APPLIC TOPICAL (20:25)
[2024-04-19 07:45] VITALS: BP 125/71; PULSE 98; RESP 16; TEMP 37.1; O2SAT 99
--- NOTE | 2024-04-19 08:38 | PM.OBPNVD ---
OB - PN: Subj Subjective Date/time seen: 04/19/24 08:38 Narrative: Pain OK. Tolerating diet. OB - PN: Obj Data Labs 04/17/24 08:16 OB - PN A/P Plan Comments: A: POD#2, doing well. P: Routine care. Exam Narrative: AVSS I/O OK ABD soft, nontender, fundus firm. Incision c/d/i. EXT nontender
[2024-04-19] MEDS: MULTIVIT/MIN/PREN/FOL AC/IRON TABLET 1 TAB PO (08:58)
[2024-04-19] MEDS: POLYSACCHARIDE IRON COMPLEX 150 MG CAPSULE PO ×2 (08:59→16:57)
[2024-04-19] MEDS: DOCUSATE SODIUM 100 MG CAPSULE PO ×2 (08:59→16:58)
[2024-04-19] MEDS: SIMETHICONE 80 MG TAB.CHEW PO ×2 (08:59→16:58)
[2024-04-19 20:48] VITALS: BP 127/81; PULSE 99; RESP 18; TEMP 37.1; O2SAT 99
[2024-04-20 09:18] VITALS: BP 126/70; PULSE 91; RESP 18; TEMP 36.9; O2SAT 100
== END 2024-04-19 22:34 | disposition home or self-care (01) | DRG 788 ==
LOC: ANHLDR 04-17 00:36 → ANHOB2 04-17 03:03
PROVIDERS: Admitting Provider Obstetrics & Gynecology; Visit Provider Obstetrics & Gynecology
PROC: (CPT 59514; principal; 2024-04-16 22:45)
DX: O62.0 Primary inadequate contractions (principal); O99.214 Obesity complicating childbirth; E66.01 Morbid (severe) obesity due to excess calories; Z3A.40 40 weeks gestation of pregnancy; Z37.0 Single live birth; Z87.891 Personal history of nicotine dependence; Z90.49 Acquired absence of other specified parts of digestive tract; O42.92 Full-term premature rupture of membranes, unspecified as to length of time between rupture and onset of labor
CPT/HCPCS: 36415; 84112; 85025; 86592; 86703; 86850; 86900; 86901; A9270; G0432; J0290; J0456; J0690; J1885; J2175; J2274; J2371; J2405; J2590; J2795; J7120